=== PATIENT | female | born 1985 | race Caucasian/White ===

== ENCOUNTER 2019-08-27 05:56 | Day surgery (SDC) | payer OTHER ==
[~2019-08-27] VITALS: Ht 154.9 cm; Wt 65.8 kg
[2019-08-27 06:26] VITALS: BP 125/72
[2019-08-27 10:26] VITALS: BP 119/68
== END 2019-08-27 10:10 | disposition home or self-care (01) ==
LOC: DS 05:56 → OR 07:30 → DS 10:10
DX: N87.0 Mild cervical dysplasia (principal); N72 Inflammatory disease of cervix uteri; Z79.899 Other long term (current) drug therapy
CPT/HCPCS: C1758; J0690; J3010; J3490